=== PATIENT | male | born 1960 | race Caucasian/White ===

== ENCOUNTER → 2021-03-15 | Emergency (ER) | payer OTHER ==
[~2021-03-15] VITALS: Ht 167.6 cm; Wt 72.0 kg
[~2021-03-15] MED LIST: CEPH-585 PO; FLO0.4C PO; HYDR-3972 PO; IBUP-1986 PO; ONDA4TAB6 PO; ketorolac trometh. 30mg/ml inj. IV ONE; morphine 4 MG/ML inj SYRINge IV ONE; ondansetron/PF 4mg/2ml inj IV ONE; ringers solution, lactated 1000ml IV soln IV ONE
[2021-03-15 13:02] LABS: CLARITY,URINE CLOUDY (Clear); COLOR,URINE AMBER (Yellow); GLUCOSE, URINE NEGATIVE (Neg); KETONES,URINE TRACE mg/dl (Neg); LEUKOCYTE ESTERASE ,URINE NEGATIVE (Neg); NITRITES, URINE NEGATIVE (Neg); OCCULT BLOOD,URINE LARGE (Neg); PH,URINE 7.5 (4.8-8.0); PROTEIN,URINE 30 mg/dl (Neg)
[2021-03-15 13:04] LABS: BASOPHILS # (AUTO) 0.1 X10'3 (0-0.2); EOSINOPHILS % (AUTO) 0.3 % (0-6); HEMATOCRIT 43.6 % (42.0-52.0); HEMOGLOBIN 14.7 g/dl (14.0-17.9); LYMPHOCYTES # (AUTO) 0.7 X10'3 (1.1-4.8); MEAN CORPUSCULAR HEMOGLOBIN 33.1 PG (27.0-31.0); MEAN CORPUSCULAR HGB CONC 33.6 g/dL (33.0-36.5); MEAN CORPUSCULAR VOLUME 98.3 FL (78-98); MEAN PLATELET VOLUME 8.6 FL (7.4-10.4); MONOCYTES # (AUTO) 0.8 X10'3 (0-0.9); MONOCYTES % (AUTO) 11.3 % (2-12); NEUTROPHILS # (AUTO) 5.8 X10'3 (1.8-7.7); NEUTROPHILS % (AUTO) 78.4 % (42-75); PLATELET COUNT 212 X10'3 (140-440); RED BLOOD COUNT 4.44 X10'6 (4.70-6.10); RED CELL DISTRIBUTION WIDTH 14.6 % (11.5-14.5); WHITE BLOOD COUNT 7.3 X10'3 (4.5-11.0)
[2021-03-15 13:07] LABS: UA COLLECTION TYPE CLN CATCH MIDSTREAM
[2021-03-15 13:08] LABS: BACTERIA,URINE FEW /HPF (Neg); MUCUS STRANDS MODERATE /LPF (Neg); RBC,URINE 50-100 /HPF (0-2); SQUAMOUS EPITHELIAL CELL,UR NONE SEEN /LPF (FEW); WBC,URINE 0-4 /HPF (0-4)
[2021-03-15 13:09] LABS: CAL OXALATE CRYSTALS 1+ /HPF (NEGATIVE)
[2021-03-15 13:18] LABS: ALANINE AMINOTRANSFERASE 45 U/L (12-78); ALBUMIN 4.5 G/DL (3.4-5.0); ALBUMIN/GLOBULIN RATIO 1.3 (1.1-1.5); ALKALINE PHOSPHATASE 63 IU/L (46-116); ANION GAP 14 (8-16); ASPARTATE AMINO TRANSFERASE 32 U/L (10-37); BILIRUBIN,TOTAL 1.1 MG/DL (0.1-1.0); BLOOD UREA NITROGEN 14 MG/DL (7-18); BUN/CREATININE RATIO 11.3 (5.4-32.0); CALCIUM 9.4 MG/DL (8.5-10.1); CHLORIDE 104 MMOL/L (99-107); CREATININE 1.24 MG/DL (0.60-1.10); GLUCOSE 149 MG/DL (70-104); POTASSIUM 3.7 MMOL/L (3.5-5.1); SODIUM 142 MMOL/L (135-145); TOTAL CARBON DIOXIDE 24.1 MMOL/L (24-32); TOTAL PROTEIN 7.9 G/DL (6.4-8.2); eGFR 59 ML/MIN
[2021-03-15 13:19] LABS: LIPASE 59 U/L (73-393)
[2021-03-15 14:36] VITALS: BP 113/55
== END | disposition home or self-care (01) ==
LOC: ER 12:26
DX: N20.0 Calculus of kidney (principal); R11.2 Nausea with vomiting, unspecified; Z87.442 Personal history of urinary calculi; Z72.89 Other problems related to lifestyle; Z88.2 Allergy status to sulfonamides; Z79.2 Long term (current) use of antibiotics; Z79.899 Other long term (current) drug therapy
CPT/HCPCS: 36415; 74176; 80053; 81001; 83690; 85025; 96361; 96374; 96375; 99284; J1885; J2270; J2405; J7120